=== PATIENT | female | born 1990 | race Caucasian/White ===

== ENCOUNTER 2016-09-11 11:35 | Emergency (ER) | payer MEDICAID ==
--- NOTE | 2016-09-11 11:58 | EDM.PDOC ---
ED HPI GENERAL MEDICAL PROBLEM - General Chief Complaint: Genitourinary Problem Stated Complaint: BLOOD IN URINE Time Seen by Provider: 09/11/16 11:58 Source of Information: Reports: Patient - History of Present Illness INITIAL COMMENTS - FREE TEXT/NARRATIVE: Patient is here today for evaluation of hematuria. She notes this is been going on intermittently for 5 years but she has been worsening over the past week. She notes a history of kidney problems but is off not clear what these are. 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 She is also concerned about irregular menses, she does not have as per currently her LMP was 08/29 but she notes that she does have this approximately every 2-3 weeks and has significant cramping with this. Abdominal Pain Score (Numeric/FACES): 6 - Related Data Allergies Allergy/AdvReac Type Severity Reaction Status Date / Time No Known Allergies Allergy Verified 09/11/16 11:52 Home Meds: Home Meds . [No Known Home Meds] 07/15/14 [History] Past Medical History - Past Health History Medical/Surgical History: Denies Medical/Surgical History Social & Family History - Tobacco Use Smoking Status *Q: Current Every Day Smoker Years of Tobacco use: 7 Packs/Tins Daily: 1 - Alcohol Use Days Per Week of Alcohol Use: 0 - Recreational Drug Use Recreational Drug Use: Yes Drug Use in Last 12 Months: Yes Recreational Drug Type: Reports: Marijuana/Hashish, Methamphetamine ED ROS GENERAL - Review of Systems Review Of Systems: See Below Constitutional: Reports: No Symptoms HEENT: Reports: No Symptoms Respiratory: Reports: No Symptoms Cardiovascular: Reports: No Symptoms Endocrine: Reports: No Symptoms GI/Abdominal: Reports: Abdominal Pain, Decreased Appetite. Denies: Black Stool , Bloody Stool, Nausea, Vomiting : Reports: Flank Pain, Hematuria, Irregular Menses, Other (Menstrual cramping) . Denies: Frequency, Incontinence Musculoskeletal: Reports: No Symptoms Skin: Reports: No Symptoms ED EXAM, RENAL/ - Physical Exam Exam: See Below Exam Limited By: No Limitations General Appearance: Alert, WD/WN, No Apparent Distress Ears: Normal External Exam, Normal TMs Throat/Mouth: Normal Inspection, Normal Oropharynx Respiratory/Chest: No Respiratory Distress, Lungs Clear, Normal Breath Sounds Cardiovascular: Regular Rate, Rhythm, No Murmur GI/Abdominal: Normal Bowel Sounds, Soft (Female) Exam: Other (Patient declines pelvic exam. She does not have any CVA tenderness but does have some left suprapubic tenderness.) Back Exam: Normal Inspection Neurological: Alert, Oriented Psychiatric: Normal Affect, Normal Mood, Other Skin Exam: Warm, Dry, Intact Course - Vital Signs Last Recorded V/S: Last Vital Signs Temp 97.7 F 09/11/16 11:52 Pulse 75 09/11/16 11:52 Resp 18 09/11/16 11:52 BP 109/74 09/11/16 11:52 Pulse Ox 100 09/11/16 11:52 - Orders/Labs/Meds Orders: Active Orders 24 hr Category Date Time Status Abdomen 1V Flat [CR] Stat Exams 09/11/16 13:03 Taken CULTURE URINE [RM] Stat Lab 09/11/16 11:50 Received Labs: Laboratory Tests 09/11/16 09/11/16 09/11/16 Range/Units 11:50 11:50 12:46 WBC 6.73 (3.98-10.04) K/mm3 RBC 4.38 (3.98-5.22) M/mm3 Hgb 13.5 (11.2-15.7) gm/L Hct 40.0 (34.1-44.9) % MCV 91.3 (79.4-94.8) fl MCH 30.8 (25.6-32.2) pg MCHC 33.8 (32.2-35.5) g/dl RDW Std Deviation 40.2 (36.4-46.3) fL Plt Count 295 (182-369) K/mm3 MPV 9.7 (9.4-12.3) fl Neutrophils % (Manual) 51 (40-60) % Band Neutrophils % 0 (0-10) % Lymphocytes % (Manual) 44 H (20-40) % Atypical Lymphs % 0 % Monocytes % (Manual) 3 (2-10) % Eosinophils % (Manual) 2 (0.7-5.8) % Basophils % (Manual) 0 L (0.1-1.2) Platelet Estimate Adequate RBC Morph Comment Normal Sodium (136-145) mEq/L Potassium (3.5-5.1) mEq/L Chloride (98-107) mEq/L Carbon Dioxide (21-32) mEq/L Anion Gap (5-15) BUN (7-18) mg/dL Creatinine (0.55-1.02) mg/dL Est Cr Clr Drug Dosing mL/min Estimated GFR (MDRD) (>60) mL/min BUN/Creatinine Ratio (14-18) Glucose (74-106) mg/dL Calcium (8.5-10.1) mg/dL Total Bilirubin (0.2-1.0) mg/dL AST (15-37) U/L ALT (14-59) U/L Alkaline Phosphatase (46-116) U/L Total Protein (6.4-8.2) g/dl Albumin (3.4-5.0) g/dl Globulin gm/dL Albumin/Globulin Ratio (1-2) TSH 3rd Generation (0.358-3.74) uIU/mL Urine Color Red H (Yellow) Urine Appearance Slt cloudy H (Clear) Urine pH 7.0 (5.0-8.0) Ur Specific [place] 1.020 (1.005-1.030) Urine Protein 3+ H (Negative) Urine Glucose (UA) Negative (Negative) Urine Ketones 1+ H (Negative) Urine Occult Blood 3+ H (Negative) Urine Nitrite Positive H (Negative) Urine Bilirubin 2+ H (Negative) Urine Urobilinogen 2.0 H (0.2-1.0) Ur Leukocyte Esterase 3+ H (Negative) Urine RBC Too numerous to cnt H (0-5) /hpf Urine WBC 0-5 (0-5) /hpf Ur Epithelial Cells 0-5 (0-5) /hpf Urine Bacteria Not seen (FEW) /hpf Urine Mucus Not seen (FEW) /hpf Urine HCG, Qual Negative (NEGATIVE) 09/11/16 Range/Units 12:46 WBC (3.98-10.04) K/mm3 RBC (3.98-5.22) M/mm3 Hgb (11.2-15.7) gm/L Hct (34.1-44.9) % MCV (79.4-94.8) fl MCH (25.6-32.2) pg MCHC (32.2-35.5) g/dl RDW Std Deviation (36.4-46.3) fL Plt Count (182-369) K/mm3 MPV (9.4-12.3) fl Neutrophils % (Manual) (40-60) % Band Neutrophils % (0-10) % Lymphocytes % (Manual) (20-40) % Atypical Lymphs % % Monocytes % (Manual) (2-10) % Eosinophils % (Manual) (0.7-5.8) % Basophils % (Manual) (0.1-1.2) Platelet Estimate RBC Morph Comment Sodium 142 (136-145) mEq/L Potassium 4.2 (3.5-5.1) mEq/L Chloride 109 H (98-107) mEq/L Carbon Dioxide 27 (21-32) mEq/L Anion Gap 10.2 (5-15) BUN 13 (7-18) mg/dL Creatinine 0.8 (0.55-1.02) mg/dL Est Cr Clr Drug Dosing 96.73 mL/min Estimated GFR (MDRD) > 60 (>60) mL/min BUN/Creatinine Ratio 16.3 (14-18) Glucose 90 (74-106) mg/dL Calcium 8.8 (8.5-10.1) mg/dL Total Bilirubin 0.4 (0.2-1.0) mg/dL AST 15 (15-37) U/L ALT 22 (14-59) U/L Alkaline Phosphatase 81 (46-116) U/L Total Protein 6.7 (6.4-8.2) g/dl Albumin 3.6 (3.4-5.0) g/dl Globulin 3.1 gm/dL Albumin/Globulin Ratio 1.2 (1-2) TSH 3rd Generation 0.515 (0.358-3.74) uIU/mL Urine Color (Yellow) Urine Appearance (Clear) Urine pH (5.0-8.0) Ur Specific [place] (1.005-1.030) Urine Protein (Negative) Urine Glucose (UA) (Negative) Urine Ketones (Negative) Urine Occult Blood (Negative) Urine Nitrite (Negative) Urine Bilirubin (Negative) Urine Urobilinogen (0.2-1.0) Ur Leukocyte Esterase (Negative) Urine RBC (0-5) /hpf Urine WBC (0-5) /hpf Ur Epithelial Cells (0-5) /hpf Urine Bacteria (FEW) /hpf Urine Mucus (FEW) /hpf Urine HCG, Qual (NEGATIVE) Meds: Medications Discontinued Medications Generic Name Dose Route Start Last Admin Trade Name Freq PRN Reason Stop Dose Admin Iopamidol 100 ml 09/11/16 14:07 09/11/16 14:21 Isovue-300 (61%) IVPUSH 09/11/16 14:08 100 ml ONETIME ONE Administration Sodium Chloride 10 ml 09/11/16 14:07 09/11/16 14:21 Saline Flush FLUSH 09/11/16 14:08 10 ml ONETIME ONE Administration - Re-Assessments/Exams Free Text/Narrative Re-Assessment/Exam: Mild suprapubic tenderness on exam. Patient declines pelvic exam today. CBC and CMP unremarkable. She does have 3+ protein, nitrites and 3+ leukocyte esterase on urinalysis. Discussed treating empirically a patient declines, will notify her of culture is available. She does need to increase her fluid intake. CT did not demonstrate specific cause for her hematuria. No ureteral calculi or renal/bladder mass was noted Not acute abdomen, will await urine culture. Patient is low followup with myself in clinic for her full physical with Pap tests next week. Will get pelvic ultrasound prior to this. If hematuria does not resolve with treatment of UTI then will need to consider referral to urology for further evaluation. Advised patient that she should keep this appointment with myself next week and certainly return to the ER should worsen 09/11/16 17:48 09/11/16 17:50 Departure - Departure Time of Disposition: 15:53 Disposition: Home, Self-Care 01 Condition: good Clinical Impression: Hematuria, Irregular menses Constipation Qualifiers: Constipation type: unspecified constipation type Qualified Code(s): K59.00 - Constipation, unspecified - Discharge Information Instructions: Constipation, Adult, Hematuria, Adult Referrals: PCP,None [Primary Care Provider] - Forms: ED Department Discharge Additional Instructions: Call [phone] to schedule your Ultrasound, this same number can schedule an appointment in clinic with Steph Blackmon PA-C the following day. Increase fiber and fluid intake. You may clear colon with 1/2 bottle magnesium citrate, you can repeat this the following day if needed. You may certainly return to ER if symptoms should worsen. - My Orders Last 24 Hours: My Active Orders 09/11/16 11:50 CULTURE URINE [RM] Stat 09/11/16 13:03 Abdomen 1V Flat [CR] Stat - Assessment/Plan Last 24 Hours: My Active Orders 09/11/16 11:50 CULTURE URINE [RM] Stat 09/11/16 13:03 Abdomen 1V Flat [CR] Stat
[2016-09-11 12:00] VITALS: BP 109/74
[2016-09-11] MEDS ORDERED: Iopamidol 612 MG/ML 100 ML Bottle IVPUSH ONE (14:07)
[2016-09-11] MEDS ORDERED: Sodium Chloride 0.9% 10 ML Syringe FLUSH ONE (14:07)
--- NOTE | 2016-09-11 15:07 | CT ---
CT abdomen and pelvis (with and without contrast) Technique: Multiple axial sections were obtained from above the kidneys inferiorly through the pubic symphysis. Intravenous and oral contrast not utilized. Intravenous contrast was given and imaging obtained from the top the kidneys inferiorly through the kidneys. Delayed images were then obtained from above the kidneys inferiorly through the pubic symphysis. Findings: Several small calcifications are seen within pelvis which lie outside the ureters. No abnormal calcifications are seen within the ureters. No abnormal calcifications are identified within the kidneys. Kidneys show symmetric contrast enhancement. No hydronephrosis or mass is seen within either kidney. Opacified collecting systems on delayed images shows no filling defects. Opacified ureters appear within normal limits. No abnormality is identified within the bladder. Visualized portions of the liver and spleen appear within normal limits. Pancreas is within normal limits. Adrenal glands show no nodule. Aorta shows no aneurysmal dilatation. No retroperitoneal adenopathy or mesenteric abnormalities are seen. No pelvic mass or adenopathy is seen. No free fluid or inflammatory change is seen within the abdomen or pelvis. Appendix is seen which appears normal. Impression: 1. No ureteral calculi, renal calculi, or renal mass or ureteral abnormality is seen. No etiology is seen for the patient's hematuria and left flank pain. 2. Other portions of the CT exam of the abdomen and pelvis appears within normal limits. Diagnostic code #2
--- NOTE | 2016-09-14 15:46 | CR ---
Abdomen: Supine view of the abdomen was obtained. Comparison: No previous abdominal x-ray. Bowel gas pattern appears within normal limits. Calcifications are seen within the pelvis which are felt compatible with phleboliths. No other abnormal calcifications are seen. Bony structures appear within normal limits. Impression: 1. Incidental findings. Diagnostic code #2
== END 2016-09-11 16:10 | disposition home or self-care (01) ==
LOC: JD.ED 11:35
DX: R31.9 Hematuria, unspecified (principal); N92.6 Irregular menstruation, unspecified; K59.00 Constipation, unspecified; F17.210 Nicotine dependence, cigarettes, uncomplicated
CPT/HCPCS: 36415; 74000; 74178; 80053; 81001; 81025; 84443; 85025; 87086; 99284; J7050; Q9967

== ENCOUNTER 2017-02-03 13:30 | Emergency (ER) | payer MEDICAID ==
[2017-02-03 13:53] VITALS: BP 129/88
[2017-02-03] MEDS ORDERED: Sodium Chloride 0.9% 10 ML Syringe FLUSH PRN ×2 (14:38→15:54)
--- NOTE | 2017-02-03 14:42 | EDM.PDOC ---
ED HPI GENERAL MEDICAL PROBLEM - General Chief Complaint: Genitourinary Problem Stated Complaint: BLOOD IN URINE Time Seen by Provider: 02/03/17 14:13 Source of Information: Reports: Patient History Limitations: Reports: No Limitations - History of Present Illness INITIAL COMMENTS - FREE TEXT/NARRATIVE: Patient is a 26-year-old female presents ED complaining of hematuria. Patient states this started December 21, 2016 has been progressive since. Does have some pain with urination. Mild lower abdnominal discomfort. Took Azo with no relief. Patient is sexually active and denies any abnormal vaginal discharge. Last menstrual cycle was January 03, 2017. States current symptoms are nothing like having her menstrual cycle. She Is mildly nauseated. Pain does wax and wane in intensity. No fevers/chills, no diarrhea, no blood in her stool, back pain, or additional complaints. Abdominal Pain Score (Numeric/FACES): 5 - Related Data Allergies Allergy/AdvReac Type Severity Reaction Status Date / Time No Known Allergies Allergy Verified 02/03/17 13:52 Home Meds: Home Meds . 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 Social & Family History - Family History Family Medical History: Noncontributory - Tobacco Use Smoking Status *Q: Current Every Day Smoker Years of Tobacco use: 7 Packs/Tins Daily: 1 - Caffeine Use Caffeine Use: Reports: Coffee, Energy Drinks, Soda, Tea - Alcohol Use Days Per Week of Alcohol Use: 0 - Recreational Drug Use Recreational Drug Use: Yes Drug Use in Last 12 Months: Yes Recreational Drug Type: Reports: Marijuana/Hashish, Methamphetamine Recreational Drug Use Frequency: Daily ED ROS GENERAL - Review of Systems Review Of Systems: ROS reveals no pertinent complaints other than HPI. ED EXAM, RENAL/ - Physical Exam Exam: See Below Exam Limited By: No Limitations General Appearance: Alert, WD/WN, No Apparent Distress Ears: Hearing Grossly Normal Nose: Normal Inspection Throat/Mouth: Normal Voice, No Airway Compromise Head: Atraumatic, Normocephalic Neck: Normal Inspection, Supple Respiratory/Chest: No Respiratory Distress, Lungs Clear, Normal Breath Sounds, No Accessory Muscle Use, Chest Non-Tender Cardiovascular: Normal Peripheral Pulses, Regular Rate, Rhythm, No Murmur GI/Abdominal: Normal Bowel Sounds, Soft, No Organomegaly, No Distention, Tender (mild lowersuprapubic abdominal pain with palpation) (Female) Exam: Deferred Rectal (Female) Exam: Deferred Back Exam: Normal Inspection. No: CVA Tenderness (L), CVA Tenderness (R) Neurological: Alert, Oriented, CN II-XII Intact, Normal Cognition, No Motor/ Sensory Deficits Psychiatric: Normal Affect, Normal Mood Skin Exam: Warm, Dry, Intact, Normal Color, No Rash Course - Vital Signs Last Recorded V/S: Last Vital Signs Temp 97.2 F 02/03/17 13:48 Pulse 69 02/03/17 13:48 Resp 16 02/03/17 13:48 BP 129/88 02/03/17 13:48 Pulse Ox 100 02/03/17 13:48 - Orders/Labs/Meds Labs: Laboratory Tests 02/03/17 02/03/17 02/03/17 Range/Units 14:45 14:50 14:50 WBC 6.82 (3.98-10.04) K/mm3 RBC 4.56 (3.98-5.22) M/mm3 Hgb 14.3 (11.2-15.7) gm/L Hct 41.2 (34.1-44.9) % MCV 90.4 (79.4-94.8) fl MCH 31.4 (25.6-32.2) pg MCHC 34.7 (32.2-35.5) g/dl RDW Std Deviation 39.4 (36.4-46.3) fL Plt Count 285 (182-369) K/mm3 MPV 9.8 (9.4-12.3) fl Neut % (Auto) 55.5 (34.0-71.1) % Lymph % (Auto) 33.7 (19.3-51.7) % [place] % (Auto) 7.5 (4.7-12.5) % Eos % (Auto) 2.1 (0.7-5.8) Baso % (Auto) 0.9 (0.1-1.2) % Neut # (Auto) 3.79 (1.56-6.13) K/mm3 Lymph # (Auto) 2.30 (1.18-3.74) K/mm3 [place] # (Auto) 0.51 H (0.24-0.36) K/mm3 Eos # (Auto) 0.14 (0.04-0.36) K/mm3 Baso # (Auto) 0.06 (0.01-0.08) K/mm3 Sodium 141 (136-145) mEq/L Potassium 4.0 (3.5-5.1) mEq/L Chloride 104 (98-107) mEq/L Carbon Dioxide 26 (21-32) mEq/L Anion Gap 15.0 (5-15) BUN 11 (7-18) mg/dL Creatinine 0.8 (0.55-1.02) mg/dL Est Cr Clr Drug Dosing 95.89 mL/min Estimated GFR (MDRD) > 60 (>60) mL/min BUN/Creatinine Ratio 13.8 L (14-18) Glucose 94 (74-106) mg/dL Calcium 9.3 (8.5-10.1) mg/dL Total Bilirubin 0.6 (0.2-1.0) mg/dL AST 17 (15-37) U/L ALT 22 (14-59) U/L Alkaline Phosphatase 82 (46-116) U/L C-Reactive Protein < 0.2 (<1.0) mg/dL Total Protein 7.2 (6.4-8.2) g/dl Albumin 4.0 (3.4-5.0) g/dl Globulin 3.2 gm/dL Albumin/Globulin Ratio 1.3 (1-2) HCG, Qual (NEGATIVE) Urine Color Red H (Yellow) Urine Appearance Turbid H (Clear) Urine pH 7.0 (5.0-8.0) Ur Specific [place] 1.020 (1.005-1.030) Urine Protein 2+ H (Negative) Urine Glucose (UA) Negative (Negative) Urine Ketones Negative (Negative) Urine Occult Blood 3+ H (Negative) Urine Nitrite Negative (Negative) Urine Bilirubin Negative (Negative) Urine Urobilinogen 0.2 (0.2-1.0) Ur Leukocyte Esterase Negative (Negative) Urine RBC >100 H (0-5) /hpf Urine WBC 0-5 (0-5) /hpf Ur Epithelial Cells 5-10 H (0-5) /hpf Urine Bacteria Rare (FEW) /hpf Urine Mucus Not seen (FEW) /hpf 02/03/17 Range/Units 14:50 WBC (3.98-10.04) K/mm3 RBC (3.98-5.22) M/mm3 Hgb (11.2-15.7) gm/L Hct (34.1-44.9) % MCV (79.4-94.8) fl MCH (25.6-32.2) pg MCHC (32.2-35.5) g/dl RDW Std Deviation (36.4-46.3) fL Plt Count (182-369) K/mm3 MPV (9.4-12.3) fl Neut % (Auto) (34.0-71.1) % Lymph % (Auto) (19.3-51.7) % [place] % (Auto) (4.7-12.5) % Eos % (Auto) (0.7-5.8) Baso % (Auto) (0.1-1.2) % Neut # (Auto) (1.56-6.13) K/mm3 Lymph # (Auto) (1.18-3.74) K/mm3 [place] # (Auto) (0.24-0.36) K/mm3 Eos # (Auto) (0.04-0.36) K/mm3 Baso # (Auto) (0.01-0.08) K/mm3 Sodium (136-145) mEq/L Potassium (3.5-5.1) mEq/L Chloride (98-107) mEq/L Carbon Dioxide (21-32) mEq/L Anion Gap (5-15) BUN (7-18) mg/dL Creatinine (0.55-1.02) mg/dL Est Cr Clr Drug Dosing mL/min Estimated GFR (MDRD) (>60) mL/min BUN/Creatinine Ratio (14-18) Glucose (74-106) mg/dL Calcium (8.5-10.1) mg/dL Total Bilirubin (0.2-1.0) mg/dL AST (15-37) U/L ALT (14-59) U/L Alkaline Phosphatase (46-116) U/L C-Reactive Protein (<1.0) mg/dL Total Protein (6.4-8.2) g/dl Albumin (3.4-5.0) g/dl Globulin gm/dL Albumin/Globulin Ratio (1-2) HCG, Qual Negative (NEGATIVE) Urine Color (Yellow) Urine Appearance (Clear) Urine pH (5.0-8.0) Ur Specific [place] (1.005-1.030) Urine Protein (Negative) Urine Glucose (UA) (Negative) Urine Ketones (Negative) Urine Occult Blood (Negative) Urine Nitrite (Negative) Urine Bilirubin (Negative) Urine Urobilinogen (0.2-1.0) Ur Leukocyte Esterase (Negative) Urine RBC (0-5) /hpf Urine WBC (0-5) /hpf Ur Epithelial Cells (0-5) /hpf Urine Bacteria (FEW) /hpf Urine Mucus (FEW) /hpf Meds: Medications Discontinued Medications Generic Name Dose Route Start Last Admin Trade Name Freq PRN Reason Stop Dose Admin Sodium Chloride 1,000 mls @ 250 mls/hr 02/03/17 14:45 02/03/17 14:53 Normal Saline IV 250 mls/hr ASDIRECTED ZEKE Administration Iopamidol 100 ml 02/03/17 15:54 02/03/17 16:10 Isovue-300 (61%) IVPUSH 02/03/17 15:55 100 ml ONETIME ONE Administration Sodium Chloride 10 ml 02/03/17 14:38 02/03/17 14:54 Saline Flush FLUSH 10 ml ASDIRECTED PRN Administration Keep Vein Open Sodium Chloride 10 ml 02/03/17 15:54 02/03/17 16:10 Saline Flush FLUSH 10 ml ONETIME PRN Administration IV FLUSH - Re-Assessments/Exams Free Text/Narrative Re-Assessment/Exam: IV established with normal saline 250 mL per hour. Initial labs and studies include CBC, chem 14, hCG, UA, and CRP. Labs reviewed cbc, C14, crp essentially normal. HCG negative. UA grossly positive for blood no concerns for infection. CT of the abdomen and pelvis obtained per urology protocol with and without contrast. CT abdomen and pelvis came back with no renal calculi, ureteral dilitation, ureteral stone is seen. No renal mass identified. No abnormality is seen by this exam within the bladder. Other portions of the CT study of the abdomen and pelvis also appears unremarkable. Shared results of labs and ct study with patient. Instructed to see a urologists thus cystoscopy be performed to ensure no bladder abnormalities. Discharge instructions as documented. Departure - Departure Time of Disposition: 17:43 Disposition: Home, Self-Care 01 Condition: Good Clinical Impression: Hematuria Qualifiers: Hematuria type: gross Qualified Code(s): R31.0 - Gross hematuria - Discharge Information Instructions: Hematuria, Adult Referrals: PCP,None [Primary Care Provider] - Forms: ED Department Discharge Additional Instructions: As discussed gross hematuria present. Unclear etiology. CT did not reveal any concerning findings. Lab work did not reveal any concerning findings as well. Plan is for you to see a urologist in [place] for further evaluation and treatment. Call [facility] tomorrow to make an appointment. Tell them you were seen in the ED for gross blood within her urine. Do not take any NSAIDs. Continue to push the fluids. Return to the ED for any new or worsening symptoms.
[2017-02-03] MEDS ORDERED: Sodium Chloride 0.9% 1,000 ML IV SCH (14:45)
[2017-02-03] MEDS ORDERED: Iopamidol 612 MG/ML 100 ML Bottle IVPUSH ONE (15:54)
--- NOTE | 2017-02-03 17:04 | CT ---
CT abdomen and pelvis (with and without contrast) Technique: Multiple noncontrast images were obtained from the top of the liver inferiorly through the pubic symphysis. Multiple axial sections were then obtained from above the kidneys inferiorly to the iliac crests following intravenous contrast. Delayed images were also obtained from above the kidneys inferiorly through the bladder. No oral contrast has been given. Comparison: Previous study CT abdomen and pelvis study of 06/20/15. Findings: Ureters show no dilatation. No abnormal calcifications are seen along the course of the ureters. Both kidneys show symmetric contrast enhancement. Delayed images shows no cyst or mass within the kidneys. Opacified collecting system shows no filling defects. Visualized portions of the ureters appear within normal limits. Visualized lung bases are clear. Visualized portions of the liver appear within normal limits. Spleen appears within normal limits. Adrenal glands show no nodule. Pancreas is within normal limits. Gallbladder shows no calcified gallstones. Aorta shows no aneurysmal dilatation. No retroperitoneal adenopathy or mesenteric abnormalities are seen. No pelvic mass or adenopathy is identified. Appendix is seen and appears normal. Bone window settings were reviewed which appear within normal limits for the patient's age. Impression: 1. No renal calculi, ureteral dilatation, ureteral stone is seen. No renal mass is identified. No abnormality is seen by this exam within the bladder. 2. Other portions of the CT study of the abdomen and pelvis also appears unremarkable. Diagnostic code #1
== END 2017-02-03 17:50 | disposition home or self-care (01) ==
LOC: JD.ED 13:30
DX: R31.0 Gross hematuria (principal); F17.210 Nicotine dependence, cigarettes, uncomplicated
CPT/HCPCS: 36415; 74178; 80053; 81001; 84703; 85025; 86140; 96360; 96361; 99284; J7040; J7050; Q9967; 99283

== ENCOUNTER 2023-09-09 19:52 | Emergency (ER) | payer BC, MEDICAID ==
[2023-09-09 20:42] LABS: A/G RATIO 1.4 (1-2); ALANINE AMINOTRANSFERASE,ALT 34 U/L (14-59); ALKALINE PHOSPHATASE 66 U/L (46-116); ANION GAP 14.9 (5-15); ASPARTATE AMNIOTRANSFERASE,AST 57 U/L (15-37); BILIRUBIN TOTAL 0.3 mg/dL (0.2-1.0); BLOOD UREA NITROGEN,BUN 13 mg/dL (7-18); BUN/CREATININE RATIO 14.4 (14-18); CALCIUM 8.4 mg/dL (8.5-10.1); CARBON DIOXIDE,CO2 24 mEq/L (21-32); CHLORIDE,CL 105 mEq/L (98-107); CREATININE 0.9 mg/dL (0.55-1.02); ESTIMATED GFR 87 mL/min (>60); ETHANOL BLOOD MEDICAL 0.29 gm% (0.00); GLUCOSE RANDOM 110 mg/dL (70-99); MAGNESIUM 1.8 mg/dL (1.8-2.4); POTASSIUM,K 2.9 mEq/L (3.5-5.1); PROTEIN TOTAL,TP 6.8 g/dl (6.4-8.2); SODIUM,NA 141 mEq/L (136-145)
[2023-09-09 20:53] LABS: BASOPHILS ABSOLUTE AUTO 0.1 K/mm3 (0.0-0.2); BASOPHILS PERCENT AUTO 0.8 % (0.0-1.0); EOSINOPHILS ABSOLUTE AUTO 0.1 K/mm3 (0.0-0.4); EOSINOPHILS PERCENT AUTO 0.9 % (0.0-6.0); HEMATOCRIT 39.6 % (37.0-47.0); IMMATURE GRAN ABSOLUTE AUTO 0.03 K/mm3 (0.00-0.05); IMMATURE GRAN PERCENT AUTO 0.3 % (0.0-0.4); LYMPHOCYTES ABSOLUTE AUTO 2.6 K/mm3 (1.0-4.8); LYMPHOCYTES PERCENT AUTO 29.2 % (24.0-44.0); MEAN CORPUSCULAR HEMOGLOBIN 31.3 pg (28.0-32.0); MEAN CORPUSCULAR HGB CONC 35.4 g/dl (32.0-36.0); MEAN CORPUSCULAR VOLUME 88.6 fl (83.0-99.0); MONOCYTES ABSOLUTE AUTO 0.5 K/mm3 (0.0-0.8); MONOCYTES PERCENT AUTO 5.2 % (0.0-8.0); NEUTROPHILS ABSOLUTE AUTO 5.6 K/mm3 (1.8-7.7); NEUTROPHILS PERCENT AUTO 63.6 % (41.0-71.0); PLATELET COUNT,PLT 249 K/mm3 (150-400); RED BLOOD CELL COUNT 4.47 M/mm3 (4.10-5.30)
[2023-09-09] MEDS: Potassium Chloride 20 MEQ Tab.ER PO ONE (21:35)
[2023-09-09 21:50] VITALS: BP 135/85; PULSE 80
== END 2023-09-09 21:52 | disposition home or self-care (01) ==
LOC: JD.ED 19:52
DX: F10.129 Alcohol abuse with intoxication, unspecified (principal); E87.6 Hypokalemia
CPT/HCPCS: 36415; 80053; 80307; 83735; 85025; 99284; A9270